=== PATIENT | female | born 1975 | race Caucasian/White ===

== ENCOUNTER 2017-08-11 12:39 | Emergency (ER) | payer OTHER ==
[~2017-08-11] VITALS: Ht 170.2 cm; Wt 99.8 kg
[~2017-08-11 12:39] MED LIST: CEPH500C16 PO
[2017-08-11 12:42] VITALS: BP 139/107
--- NOTE | 2017-08-11 13:00 | NUR ---
42/F BIB SELF C/O generalized rash all over body x1 day; saw by PMD for abd inflammation & GOT METRONIDAZILE & RANITIDINE.hx HTN, DM. DENIES N/V/D; AAOX4 WITH EVEN AND STEADY GAIT; LUNGS CLEAR BL; PATIENT STATES GENERALIZED ADOMINAL PAIN OF 10/10 AT THIS TIME. PATIENT POSITIONED FOR COMFORT; HOB ELEVATED; BEDRAILS UP X2; BED DOWN. ER MD MADE AWARE OF PT STATUS.
--- NOTE | 2017-08-11 13:06 | NUR ---
Patient being evaluated by DR WHITMAN at bedside.
--- NOTE | 2017-08-11 13:06 | NUR ---
Jory amin in [facility] - 08/11/17 at 1307 by [email or web address] Patient being evaluated by DR WHITMAN at bedside.
--- NOTE | 2017-08-11 13:06 | NUR ---
Dr. Wilder evaluating patient at bedside. Addendum: 08/11/17 at 1336 by [email or web address] PT C/O ITCHING ALL OF BODY.
[2017-08-11] MEDS ORDERED: LORATADINE 10 MG TAB PO ONE (13:15)
[2017-08-11] MEDS ORDERED: methylPREDNISolone SS 125 MG in WATER STERILE 2 ML IM ONE (13:15)
[2017-08-11] MEDS ORDERED: FAMOTIDINE 20 MG TAB PO ONE (13:15)
[2017-08-11] MEDS ORDERED: methylPREDNISolone SS 125 MG/2 ML VIAL ONE (13:21)
--- NOTE | 2017-08-11 14:15 | NUR ---
Jory amin in [facility] - 08/11/17 at [address] Forrester at bedside evaluating patient.
[2017-08-11 15:00] VITALS: BP 141/91
--- NOTE | 2017-08-11 15:00 | NUR ---
Patient discharged with BP 141/91; DENIES VEGA AT THIS TIME, MD MADE AWARE. Written and verbal after care instructions given and explained. Patient alert, oriented and verbalized understanding of instructions. Ambulatory with steady gait. All questions addressed prior to discharge. ID band removed. Patient advised to follow up with PMD. Rx of MEDROL DOSEPAK & DIPHENHYDRAMINE given. Patient educated on indication of medication including possible reaction and side effects. Opportunity to ask questions provided and answered.
== END 2017-08-11 15:00 | disposition home or self-care (01) ==
LOC: MED 12:39
DX: L50.0 Allergic urticaria (principal); I10 Essential (primary) hypertension; Z79.899 Other long term (current) drug therapy
CPT/HCPCS: 81002; 81025; 82948; 96372; 99283; J2930

== ENCOUNTER 2017-08-13 10:08 | Emergency (ER) | payer OTHER ==
[~2017-08-13] VITALS: Ht 172.7 cm; Wt 99.8 kg
--- NOTE | 2017-08-13 10:10 | NUR ---
arrived to er with c/o abd pain stated had went to dr before and stated had ulcers was placed on antibiotics was alleric to flagly rash was treated then abd started to have pain and bloaded and painful.pain scale at this time /10. dr at bedside orders given for cat scan
[2017-08-13 10:36] VITALS: BP 157/97
[2017-08-13] MEDS ORDERED: DICYCLOMINE 20 MG/2 ML VIAL IM ONE (11:00)
[2017-08-13 11:28] LABS: BASOPHILS # (AUTO) 0.1 K/uL (0.00-0.22); BASOPHILS % (AUTO) 1.4 % (0.0-2.0); EOSINOPHILS # (AUTO) 0.3 K/uL (0-0.4); EOSINOPHILS % (AUTO) 4.2 % (0.0-4.0); HEMATOCRIT 42.2 % (36-48); HEMOGLOBIN 13.3 g/dL (12.0-16.0); LYMPHOCYTES # (AUTO) 1.2 K/uL (2.5-16.5); LYMPHOCYTES % (AUTO) 18.6 % (20.5-51.1); MEAN CORPUSCULAR HEMOGLOBIN 26 pg (27-31); MEAN CORPUSCULAR HGB CONC 32 g/dL (33-37); MEAN CORPUSCULAR VOLUME 83 fL (80-94); MONOCYTES # (AUTO) 0.5 K/uL (0.8-1.0); MONOCYTES % (AUTO) 7.7 % (1.7-9.3); NEUTROPHILS # (AUTO) 4.1 K/uL (1.8-7.7); NEUTROPHILS % (AUTO) 68.1 % (42.2-75.2); PLATELET COUNT (AUTO) 220 K/uL (140-450); RED BLOOD CELL COUNT(AUTO) 5.09 MIL/uL (4.20-5.40); RED CELL DISTRIBUTION WIDTH 15.6 % (11.6-13.7); WHITE BLOOD COUNT (AUTO) 6.2 K/uL (4.8-10.8)
--- NOTE | 2017-08-13 11:33 | NUR ---
down to ct at this time
[2017-08-13] MEDS ORDERED: ASPI81CT89 PO (11:35)
[2017-08-13] MEDS ORDERED: INVOCANA PO (11:35)
[2017-08-13] MEDS ORDERED: AMLO1CAP PO (11:35)
[2017-08-13 11:39] LABS: BILIRUBIN,URINE NEGATIVE (NEGATIVE); BLOOD, URINE NEGATIVE (NEGATIVE); COLOR,URINE YELLOW (YELLOW); LEUKOCYTE ESTERASE ,URINE NEGATIVE (NEGATIVE); NITRITE, URINE NEGATIVE (NEGATIVE); UGLUCOSE 3+ (NEGATIVE)
[2017-08-13 11:51] LABS: ANION GAP 14.5 (8-16); CARBON DIOXIDE 24.4 mmol/L (21-32); CREATININE 0.7 mg/dL (0.6-1.3); POTASSIUM 3.9 mmol/L (3.5-5.1)
[2017-08-13 11:56] LABS: ALBUMIN 3.2 g/dL (3.4-5.0); TOTAL BILIRUBIN 0.5 mg/dL (0.0-1.0)
[2017-08-13 12:08] LABS: APPEARANCE,URINE SLIGHTLY HAZY (CLEAR)
[2017-08-13 12:11] LABS: RBC,URINE NONE SEEN /HPF (0-5); WBC,URINE 0-5 (RARE) /HPF (0-5)
[2017-08-13 13:07] VITALS: BP 138/84
--- NOTE | 2017-08-13 13:07 | NUR ---
Patient discharged with v/s stable. Written and verbal after care instructions given and explained. Patient alert, oriented and verbalized understanding of instructions. Ambulatory with steady gait. All questions addressed prior to discharge. ID band removed. Patient advised to follow up with PMD. Rx of BENTYL given. Patient educated on indication of medication including possible reaction and side effects. Opportunity to ask questions provided and answered.
== END 2017-08-13 13:07 | disposition home or self-care (01) ==
LOC: MED 10:08
DX: K76.0 Fatty (change of) liver, not elsewhere classified (principal); E11.9 Type 2 diabetes mellitus without complications; I10 Essential (primary) hypertension; Z88.8 Allergy status to other drugs, medicaments and biological substances
CPT/HCPCS: 36415; 74176; 80053; 81001; 82948; 83690; 85025; 96372; 99285; J0500; 81025

== ENCOUNTER 2018-04-23 12:48 | Emergency (ER) | payer OTHER ==
[~2018-04-23] VITALS: Ht 172.7 cm; Wt 99.3 kg
[~2018-04-23 12:48] MED LIST changes: +AMLO1CAP PO; +ASPI81CT89 PO; +INVOCANA PO
[2018-04-23 12:54] VITALS: BP 148/83
--- NOTE | 2018-04-23 13:21 | NUR ---
PATIENT PRESENTS TO ED WITH C/O SORE THROAT X 5 DAYS. PT WAS SEEN BY PRIMARY AND GIVEN 'Z-PACK' AND TESSALON PEARLS. PT STATES SYMPTOMS WORSENING AND HAS NOW LOST HER VOICE. REPORTS PAIN 9/10, DIFFICULT TO SWALLOW AND CONSTANT COUGH WITH PAIN. . VSS; PATIENT POSITIONED FOR COMFORT; HOB ELEVATED; BEDRAILS UP X2; BED DOWN. ER MD MADE AWARE OF PT STATUS.
--- NOTE | 2018-04-23 15:17 | NUR ---
Patient being evaluated by physician at bedside.
[2018-04-23] MEDS ORDERED: KETOROLAC 60 MG/2 ML VIAL IM ONE (15:20)
[2018-04-23 15:55] VITALS: BP 148/83
--- NOTE | 2018-04-23 15:55 | NUR ---
Patient discharged with v/s stable. Written and verbal after care instructions given and explained. Patient alert, oriented and verbalized understanding of instructions. Ambulatory with steady gait. All questions addressed prior to discharge. ID band removed. Patient advised to follow up with PMD. Rx of PREDNISONE, MOTRIN given. Patient educated on indication of medication including possible reaction and side effects. Opportunity to ask questions provided and answered.
== END 2018-04-23 15:55 | disposition home or self-care (01) ==
LOC: MED 12:48
DX: J02.9 Acute pharyngitis, unspecified (principal); M54.2 Cervicalgia; E11.9 Type 2 diabetes mellitus without complications; I10 Essential (primary) hypertension; Z88.1 Allergy status to other antibiotic agents; Z79.82 Long term (current) use of aspirin; Z79.899 Other long term (current) drug therapy
CPT/HCPCS: 96372; 99283; J1885

== ENCOUNTER 2018-11-26 19:09 | Emergency (ER) | payer OTHER ==
[~2018-11-26] VITALS: Ht 172.7 cm; Wt 98.0 kg
[~2018-11-26 19:09] MED LIST changes: +ASPI-1718 PO; -ASPI81CT89 PO
[2018-11-26 19:20] VITALS: BP 122/67
--- NOTE | 2018-11-26 19:20 | NUR ---
TO BED # 12 AMBULATORY
--- NOTE | 2018-11-26 19:30 | NUR ---
43 YO F BIB SELF PRESENTS TO ED C/O EPISTAXIS OFF AND ON X 1 WEEK. PT STATES TODAY HAS BEEN THE HEAVIEST BLOOD FLOW WITH 3 SEPARATE NOSE BLEEDS AND MOST RECENT LASTING NONSTOP X 1 HOUR. PT DENIES PAIN AT THIS TIME. INSTRUCTED TO PINCH BRIDGE OF NOSE, AVOID NOSE-BLOWING AND PROVIDED TOWEL. -- PT AWAKE, ALERT, CALM, COOPERATIVE. ANSWERS QUESTIONS APPROPRIATELY. BEHAVIOR AGE APPROPRIATE. -- SKIN PINK, WARM DRY. DENIES DIZZINESS OR FEELING LIGHT HEADED. PMH-- DM, HTN RX-- BABY ASPIRIN (DOESN'T KNOW DOSE) ONCE DAILY
[2018-11-26] MEDS ORDERED: TRANEXAMIC ACID 1,000 MG in NACL 0.9% 50 ML IV STA (20:37)
[2018-11-26 20:57] LABS: BASOPHILS # (AUTO) 0.1 K/uL (0.00-0.22); BASOPHILS % (AUTO) 0.7 % (0.0-2.0); EOSINOPHILS # (AUTO) 0.2 K/uL (0-0.4); EOSINOPHILS % (AUTO) 2.1 % (0.0-4.0); HEMATOCRIT 38.7 % (36-48); HEMOGLOBIN 12.5 g/dL (12.0-16.0); LYMPHOCYTES # (AUTO) 1.9 K/uL (2.5-16.5); LYMPHOCYTES % (AUTO) 24.9 % (20.5-51.1); MEAN CORPUSCULAR HEMOGLOBIN 27 pg (27-31); MEAN CORPUSCULAR HGB CONC 33 g/dL (33-37); MEAN CORPUSCULAR VOLUME 82.1 fL (80-94); MONOCYTES # (AUTO) 0.6 K/uL (0.8-1.0); MONOCYTES % (AUTO) 8.3 % (1.7-9.3); NEUTROPHILS # (AUTO) 4.9 K/uL (1.8-7.7); PLATELET COUNT (AUTO) 212 K/uL (140-450); RED BLOOD CELL COUNT(AUTO) 4.71 MIL/uL (4.20-5.40); WHITE BLOOD COUNT (AUTO) 7.7 K/uL (4.8-10.8)
[2018-11-26 21:07] LABS: ANION GAP 16.5 (8-16); CARBON DIOXIDE 23.4 mmol/L (21-32); CREATININE 0.8 mg/dL (0.6-1.3); POTASSIUM 3.9 mmol/L (3.5-5.1)
[2018-11-26] MEDS ORDERED: TRANEXAMIC ACID 1,000 MG/10 ML VIAL IV ONE (21:07)
[2018-11-26 21:11] LABS: PROTHROMBIN TIME 9.5 secs (10.8-13.4)
[2018-11-26 21:13] LABS: ALBUMIN 3.5 g/dL (3.4-5.0); TOTAL BILIRUBIN 0.3 mg/dL (0.0-1.0)
[2018-11-26 21:30] VITALS: BP 124/64
--- NOTE | 2018-11-26 21:30 | NUR ---
Patient discharged with v/s stable. Written and verbal after care instructions given and explained. Patient alert, oriented and verbalized understanding of instructions. Ambulatory with steady gait. All questions addressed prior to discharge. ID band removed. Patient advised to follow up with PMD. Rx of EQUATE SALINE given. Patient educated on indication of medication including possible reaction and side effects. Opportunity to ask questions provided and answered.
== END 2018-11-26 21:30 | disposition home or self-care (01) ==
LOC: MED 19:09
DX: R04.0 Epistaxis (principal); R51 Headache; I10 Essential (primary) hypertension; Z79.82 Long term (current) use of aspirin; Z79.899 Other long term (current) drug therapy; Z88.1 Allergy status to other antibiotic agents
CPT/HCPCS: 36415; 80053; 85025; 85610; 85730; 96365; 99283; J3490

== ENCOUNTER 2020-12-29 10:53 | Emergency (ER) | payer OTHER ==
[~2020-12-29] VITALS: Ht 172.7 cm; Wt 91.6 kg
[~2020-12-29 10:53] MED LIST changes: -ASPI-1718 PO; +ASPI-1822 PO
[2020-12-29 11:00] VITALS: BP 159/103
--- NOTE | 2020-12-29 11:00 | NUR ---
45 Y/O FEMALE C/O LOWER BACK PAIN RADIATING DOWN BOTH LEGS X3 DAYS. PT NOT SURE IF SHE HURT HERSELF EXERCISING OR LIFTING HER GRANDCHILD. PT STATES 03/26 "SPASM" PAIN RADIATING TO BILAT LEGS. RX: ADVIL WITH NO RELIEF MEDHX:DM, HTN ALLERGIES: METRONIDAZOLE
--- NOTE | 2020-12-29 11:32 | NUR ---
DR WAGNER AT BEDSIDE EXAMINING PT
--- NOTE | 2020-12-29 11:39 | NUR ---
PT AMBULATED TO RESTROOM, STEADY GAIT
[2020-12-29] MEDS ORDERED: KETOROLAC 60 MG/2 ML VIAL IM ONE (11:50)
--- NOTE | 2020-12-29 12:19 | NUR ---
PT TAKEN TO XRAY VIA W/C
--- NOTE | 2020-12-29 12:30 | NUR ---
PT RETURNED FROM XRAY
[2020-12-29] MEDS ORDERED: CYCL-711 PO (13:38)
[2020-12-29] MEDS ORDERED: NAPR-54 PO (13:38)
[2020-12-29 13:54] VITALS: BP 145/95
--- NOTE | 2020-12-29 13:54 | NUR ---
Patient discharged with v/s stable. Written and verbal after care instructions given and explained. Patient alert, oriented and verbalized understanding of instructions. Ambulatory with steady gait. All questions addressed prior to discharge. ID band removed. Patient advised to follow up with PMD. Rx of Naproxen and Flexeril given. Patient educated on indication of medication including possible reaction and side effects. Opportunity to ask questions provided and answered.
== END 2020-12-29 13:54 | disposition home or self-care (01) ==
LOC: MED 10:53
DX: M54.5 Low back pain (principal); I10 Essential (primary) hypertension; Z88.8 Allergy status to other drugs, medicaments and biological substances
CPT/HCPCS: 72100; 81002; 81025; 96372; 99283; J1885

== ENCOUNTER 2021-03-23 15:18 | Emergency (ER) | payer OTHER ==
[~2021-03-23] VITALS: Ht 172.7 cm; Wt 99.8 kg
[~2021-03-23 15:18] MED LIST changes: +CYCL-711 PO; +NAPR-54 PO
[2021-03-23 15:25] VITALS: BP 134/87
[2021-03-23] MEDS ORDERED: PRED20TA5 PO ×2 (16:52→17:13)
[2021-03-23] MEDS ORDERED: ROBAC PO (17:25)
--- NOTE | 2021-03-23 17:26 | NUR ---
NO NURSING INTERVENTIONS COMPLETED DURING VISIT
[2021-03-23 17:27] VITALS: BP 134/87
== END 2021-03-23 17:27 | disposition home or self-care (01) ==
LOC: MED 15:18
DX: J20.9 Acute bronchitis, unspecified (principal); I10 Essential (primary) hypertension; Z88.1 Allergy status to other antibiotic agents
CPT/HCPCS: 71045; 99283